=== PATIENT | female | born 1945 | race Two or more races ===

== ENCOUNTER 2020-12-14 05:32 | Inpatient (IN) | payer OTHER ==
[2020-12-14] VITALS (16 sets, daily range): BP systolic 124–186; BP diastolic 67–89
[~2020-12-14] VITALS: Ht 157.5 cm; Wt 81.6 kg
[~2020-12-14 05:32] MED LIST: B COMPLEX1 EACH ORAL; MULTIVITAMIN1 EACH PO; SYNTHROID25 MCG ORAL
[2020-12-14] MEDS ORDERED: celeBREX 200mg Cap **SURGERY PATIENTS ONLY ORAL ONE (06:00)
[2020-12-14] MEDS ORDERED: ceFAZolin 1gm IVPB IVPB ONE ×2 (06:00)
[2020-12-14] MEDS ORDERED: oxyCONTIN 10mg tab ORAL ONE (06:00)
[2020-12-14] MEDS ORDERED: PROPRANOLOL HCL40 MG ORAL (06:12)
[2020-12-14] MEDS ORDERED: Succinylcholine 20mg/ml 10ml vial ONE (06:42)
[2020-12-14] MEDS ORDERED: Rocuronium Bromide 50mg/5ml Inj IV ONE (06:42)
[2020-12-14] MEDS ORDERED: Lidocaine 1% MPF 10mg/ml 5ml ONE (06:44)
[2020-12-14] MEDS ORDERED: Ropivacaine 5mg/ml Vial 30ml INJ ONE (06:46)
[2020-12-14] MEDS ORDERED: fentaNYL 100 mcg/2 mL IV ONE (06:49)
[2020-12-14] MEDS ORDERED: Midazolam 2mg/2ml Inj ONE (06:49)
--- NOTE | 2020-12-14 07:02 | Pre-Procedure Note/Attestation ---
Pre-Procedure Note/Attestation Complete Prior to Procedure Planned Procedure: left Procedure Narrative: left total knee arthroplasty Indications for Procedure Pre-Operative Diagnosis: left knee arthritis Attestation I attest that I discussed the nature of the procedure; its benefits; risks and complications; and alternatives (and the risks and benefits of such alternatives), prior to the procedure, with the patient (or the patient's legal senior patient account representative). I attest that, if there was a reasonable possibility of needing a blood transfusion, the patient (or the patient's legal senior patient account representative) was given the [facility] Services standardized written summary, pursuant to the Dawood Jorge Blood Safety Act ([place] Health and Safety Code # 1645, as amended). I attest that I re-evaluated the patient just prior to the surgery and that there has been no change in the patient's H&P, except as documented below:NONE Og Salas MD Dec 14, 2020 07:02
[2020-12-14] MEDS ORDERED: NeoSporin Gu Irrig 1ml Amp IRRIG ONE ×2 (07:10→08:31)
[2020-12-14] MEDS ORDERED: Bacitracin 50000 Units Vial ONE ×2 (07:10→08:31)
[2020-12-14] MEDS ORDERED: TRANEXAMIC ACID IVPB ONE (07:15)
[2020-12-14] MEDS ORDERED: Sterile Water Irrig 1000ml IRRIG ONE (07:30)
[2020-12-14] MEDS ORDERED: Neostigmine 1mg/ml 10ml Inj ONE (07:30)
[2020-12-14] MEDS ORDERED: LR 1000ml ONE (07:30)
[2020-12-14] MEDS ORDERED: NS Irrig 1000ml IRRIG ONE ×3 (07:43→09:12)
[2020-12-14] MEDS ORDERED: ePHEDrine 50mg/ml Inj ONE (07:51)
[2020-12-14] MEDS ORDERED: Sodium Chloride 10ml vial INJ ONE ×2 (07:52→08:29)
[2020-12-14] MEDS ORDERED: Atropine Sulfate 0.4mg/ml inj ONE (07:53)
--- NOTE | 2020-12-14 08:24 | Anethesia Preoperative Eval ---
Anesthesia Pre-op PMH/ROS General Date of Evaluation: Dec 14, 2020 Time of Evaluation: 06:50 Anesthesiologist: Momo ASA Score: ASA 2 Mallampati Score Class I : Soft palate, uvula, fauces, pillars visible Class II: Soft palate, uvula, fauces visible Class III: Soft palate, base of uvula visible Class IV: Only hard plate visible Mallampati Classification: Class II Surgeon: Maritza Diagnosis: L knee DJD Surgical Procedure: L knee arthroplasty Anesthesia History: none Family History: no anesthesia problems Allergies: Coded Allergies: No Known Allergies (Unverified , 12/14/20) Medications: see eMAR Patient NPO?: Yes Past Medical History Cardiovascular: Reports: arrhythmia - Base lie S ish b- bliocked, no conduction abnrmalities; Denies: HTN, CAD, [place], valve dz, other Pulmonary: Denies: asthma, COPD, NAVIN, other Gastrointestinal/Genitourinary: Reports: GERD; Denies: CRI, ESRD, other Neurologic/Psychiatric: Reports: depression/anxiety; Denies: dementia, CVA, TIA, other Endocrine: Reports: hypothyroidism; Denies: DM, steroids, other HEENT: Denies: cataract (L), cataract (R), glaucoma, TANANA (L), TANANA (R), other Musculoskeletal/Integumentary: Reports: DJD Other: obesity PMH Narrative: as above PSxH Narrative: T&A, hernia repair Anesthesia Pre-op Phys. Exam Physician Exam Last Vital Signs Date Time Temp Pulse Resp B/P (MAP) Pulse Ox O2 Delivery O2 Flow Rate FiO2 12/14/20 06:02 Room Air 12/14/20 06:01 97.1 48 16 124/72 (89) 97 Constitutional: NAD Neurologic: CN 2-12 intact Cardiovascular: RRR, no M/R/G Respiratory: CTA Gastrointestinal: other - obesity Airway Exam Mallampati Score: Class II MO: limited Neck: short ROM: limited Teeth: missing Dentures: no upper, no lower Anesthesia Pre-op A/P Labs see chart Studies Pre-op Studies: EKG - Sinus Ish Risk Assessment & Plan Assessment: ASA 2 Plan: GA with ETT, L saphenous nerve block for postop pain control Pre-Antibiotics Drug: Ancef 2gr Given Within 1 Hr of Incision: Yes Time Given: 08:02 Nick Barr MD Dec 14, 2020 08:24
[2020-12-14] MEDS ORDERED: Morphine Sulfate 10mg/ml Inj ONE (08:28)
[2020-12-14] MEDS ORDERED: LR 1000ml 1,000 ML IVLG SCH (08:30)
[2020-12-14] MEDS ORDERED: Ketorolac 30mg Inj IV PRN (08:30)
[2020-12-14] MEDS ORDERED: DiphenhydrAMINE 50mg/ml Inj IVP PRN (08:30)
[2020-12-14] MEDS ORDERED: Acetaminophen (Non formulary) 100 ML IV ONE (08:30)
[2020-12-14] MEDS ORDERED: Hydromorphone 0.5mg/0.5ml inj IVP PRN (08:30)
[2020-12-14] MEDS ORDERED: Glycopyrrolate 0.2mg/ml 1ml Vial ONE (08:31)
--- NOTE | 2020-12-14 10:04 | Brief Operative Note ---
Immediate Post Operative Note Operative Note Chief Complaint: left knee pain Pre-op Diagnosis: left knee arthritis Procedure: left total knee arthroplasty Post-op Diagnosis: same as pre-op Findings: consistent w/pre-op dx studies Surgeon: md vincent Silk Weaver: doc fields Anesthesiologist: md marques Anesthesia: general Specimen: yes Complications: none Condition: stable Fluids: ns Estimated Blood Loss: minimal Drains: none Implant(s) used?: Yes - Og Lester MD Dec 14, 2020 10:04
--- NOTE | 2020-12-14 10:10 | NUR ---
CASE MANAGEMENT:REVIEW 75 YR OLD FEMALE HERE FOR ELECTIVE SURGERY SI: LEFT KNEE PAIN/ARTHRITIS 97.1 48 16 124/72 97% ON RA IS: TO SURGERY: LEFT TOTAL KNEE ARTHROPLASTY IV ANCEF X1 : CURRENTLY IN SURGERY DCP: ACUTE REHAB
--- NOTE | 2020-12-14 10:13 | NUR ---
DISCHARGE PLANNING RECEIVED CALL FROM [employer] ERIK T: [phone] F: [phone] PER ERIK PATIENT HAS BEEN APPROVED FOR 7 DAY ARU STAY POST HOSPITAL DISCHARGE
--- NOTE | 2020-12-14 10:22 | Immediate Post-Op Evaluation ---
Immediate Post-Op Evalulation Immediate Post-Op Evalulation Procedure: L total knee arthroplasty Date of Evaluation: Dec 14, 2020 Time of Evaluation: 10:21 IV Fluids: 1100 Blood Products: none Estimated Blood Loss: 100 Urinary Output: 400 Blood Pressure Systolic: 146 Blood Pressure Diastolic: 72 Pulse Rate: 48 Respiratory Rate: 18 O2 Sat by Pulse Oximetry: 99 Temperature (Fahrenheit): 97.6 Pain Score (1-10): 1 Nausea: No Vomiting: No Complications none Patient Status: reacts, patent, extubated, none Hydration Status: adequate Nick Barr MD Dec 14, 2020 10:22
--- NOTE | 2020-12-14 10:24 | NUR ---
*-*DISCHARGE PLANING*-* PATIENT HAS BEEN REFERRED TO: [facility] PH: [phone] S/W KALEE, REQUESTING THERAPY NOTES WHEN AVAILABLE.
--- NOTE | 2020-12-14 11:47 | Operative Note - Dictated ---
DATE OF OPERATION: 12/14/2020 PREOPERATIVE DIAGNOSIS: Left knee end-stage arthritis with valgus deformity. POSTOPERATIVE DIAGNOSIS: Left knee end-stage arthritis with valgus deformity. PROCEDURE: Left total knee arthroplasty using Lorna system, size 3 femur, size 3 tibia, size 31 mm all-poly patella, and size 9 mm tibial-bearing insert, all cemented. SURGEON: Og Salas MD. CASH APPLICATIONS REPRESENTATIVE: Sonam Rosales PA-C. ANESTHESIOLOGIST: Nick Barr MD. ANESTHESIA: General LMA anesthesia combined with adductor block. ESTIMATED BLOOD LOSS: Less than 100 mL. TOURNIQUET TIME: 80 minutes. COMPLICATIONS: None. BRIEF HISTORY: The patient is a pleasant 75-year-old female, who has had ongoing left knee pain. She has had decreased range of motion, stiffness, and valgus deformity. She failed nonoperative treatment. After full discussion of risks, benefits of the surgery and complications associated with it including infection, bleeding, neurovascular complication, possibility of continued pain, possibility of continued stiffness, possibility of need for further surgery, possibility of DVT, PEs, possible loss of motion, possibility of infection requiring resection arthroplasty and other complications that may arise, she opted for surgical treatment as described above. OPERATIVE PROCEDURE: The patient was brought to the operating room table and was placed supine. All pressure points well padded. General LMA anesthesia was induced and adductor block was performed. A surgical time-out was performed and preoperative antibiotics were given and tranexamic acid was given. The left knee was prepped and draped in usual sterile fashion and was exsanguinated. Tourniquet was inflated to 275 mmHg. Standard anterior approach to the knee was undertaken. The incision was taken through the subcutaneous tissue. Medial parapatellar arthrotomy was performed and medial releases of the deep fibers of the MCL was performed. The patella was then everted and was flexed. The fat pad was removed. The ACL and PCL were removed. Intramedullary access into the femur was obtained and the distal femoral cut was made in 5 degrees of valgus. Once this was completed, measurements were made and size 3 femur appeared to be the right size. The size 3 cutting block was then applied in about 3 degrees external rotation and anterior, posterior, and chamfer cuts were performed without any complications. Once this was completed, the trialing of the femur was performed and it was excellent fit. The femur was lateralized slightly and the peg holes were drilled without any complications. At this point, care was given to the tibia. The anterior crest of the tibia was palpated and marked for anatomical axis. The knee was flexed and posterior, medial, lateral retractors were placed in. The menisci were removed. The extramedullary guide was applied and anatomical axis was recreated and slope was recreated and 2 mm was taken off the most involved side, which was the lateral side. This provided excellent cut of the tibia. Once this was completed, the flexion-extension gap was checked with 9 mm gap and it appeared to be equal flexion extension with full extension of the knee. At this point, the sizing of the tibia was performed and size 3 appeared to be the right size. The tibial trial was then pinned in about 3 degrees external rotation and the central peg was drilled and it was punched. At this point, the femoral trial and tibial trial were applied and a 9 mm poly was inserted. There was full extension, full flexion and excellent stability at 0, 30 degrees, 45 degrees, and 90 degrees of flexion. At this point, care was given to the patella. The patella was everted. It measured 23 mm. Using freehand cut, a freehand cut of the patella was performed without any complication. After the cut, thickness patella was 13 mm. A size 31 mm patellar trial was applied and peg holes were drilled and the trial was applied onto the patella. At this point, range of motion and patellofemoral tracking was checked and appeared to be excellent with good patellofemoral tracking. At this point, all wounds were thoroughly irrigated. All trial components were removed. The actual components were opened and cement was mixed. After thoroughly washing the knee and drying it, the tibial component, femoral component, and patellar components were all cemented and all excess cement was removed. The cement was hardened under compression. Once this was completed, trialing with 9 mm was performed again and there was excellent range of motion and excellent stability as described previously. Patellofemoral tracking was excellent. At this point, the trial tibial insert was removed and wounds were thoroughly irrigated with Simpulse irrigation and the final 9 mm polyethylene insert was applied and locked in without any complication. The knee was placed through range of motion and varus valgus stability was checked and appeared to be excellent. The patellofemoral tracking was excellent. The wounds were thoroughly irrigated. The tourniquet was deflated and minimal bleeders were stopped. The extensor mechanism was closed using #1 Vicryl suture. Subcutaneous tissue was closed using 2-0 Vicryl suture. The skin was closed using 3-0 Monocryl suture. Dermabond was applied and sterile dressing was applied and the patient was taken to the recovery room in stable condition. All lap counts and instrument counts were correct. Og Gail Salas DR: REJI JOB#: [id number] CC:
--- NOTE | 2020-12-14 11:50 | 48 Hour Post Anesthesia Eval ---
Post Anesthesia Evaluation Procedure: L total knee arthroplasty Date of Evaluation: Dec 14, 2020 Time of Evaluation: 11:49 Blood Pressure Systolic: 175 0: 88 Pulse Rate: 49 Respiratory Rate: 19 Temperature (Fahrenheit): 97.6 O2 Sat by Pulse Oximetry: 100 Airway: patent Nausea: No Vomiting: No Pain Intensity: 3 Hydration Status: adequate Cardiopulmonary Status: Stable Mental Status/LOC: patient returned to baseline Follow-up Care/Observations: 0 Post-Anesthesia Complications: 0 Follow-up care needed: N/A Gregory Cardoso MD Dec 14, 2020 11:50
--- NOTE | 2020-12-14 12:00 | NUR ---
NURSE NOTES: Patient arrive from PACU at 1135 in no apparent distress, drowsy but arousable to voice, reporting pain that is tolerable when patient does not move. Surgical site dressing clean, dry, intact, ice pack in place, neuro assessment intact, patient denies numbness/tingling in affected extremity. IV intact, patent. Patient placed on continuous pulseox. Per Dory RN (PACU), outpatient will bring patient's belongings. Patient updated on plan of care. Side rails upx2, bed low and locked, call light within reach.
--- NOTE | 2020-12-14 12:10 | NUR ---
PT NOTE Received MD order for PT evaluation and CPM set-up. Patient drowsy, c/o L knee pain rated at 10/10. Patient unable to participate with mobility activities at this time. Patient set up on CPM 0-35 degrees per patient tolerance with good alignment. Patient instructed in use of CPM control buttons. CPM duration endorsed to Marge WOOD.
[2020-12-14] MEDS ORDERED: HYDROcodone/Acetamin 5/325 tab ORAL PRN (12:30)
[2020-12-14] MEDS: Docusate 100mg cap ORAL SCH ×2 (12:30→17:37)
[2020-12-14] MEDS ORDERED: HYDROmorphone 1mg/ml Carpuject SUBQ PRN (12:30)
[2020-12-14] MEDS ORDERED: HYDROcodone/Acetamin 7.5/325 tab ORAL PRN (12:30)
[2020-12-14] MEDS ORDERED: Milk of Magnesia 30ml Ud ORAL PRN (13:00)
[2020-12-14] MEDS: D5 1/2NS w/KCl 20mEq 1,000 ML IV SCH (13:29)
[2020-12-14] MEDS ORDERED: CEPHALEXIN500 MG ORAL (15:09)
--- NOTE | 2020-12-14 15:55 | Diagnostic Imaging Report ---
Indications: Postoperative, knee pain Technique: Two views of the left knee Comparison: None Findings: Two postoperative views of the knee demonstrate total knee arthroplasty, good anatomic alignment of the prosthesis. . Retained air from the surgical exposure seen within the soft tissues Impression: Postoperative left knee, no unusual features.
[2020-12-14] MEDS ORDERED: HydrALAZINE 25mg tab ORAL PRN (16:00)
--- NOTE | 2020-12-14 16:02 | NUR ---
NURSE NOTES: Called Dr. Jules's office for home medication orders, per office staff Dr. Victoria is currently covering for Dr. Jules. Called Dr. Victoria, reviewed home medications with MD, received orders to continue patient's home medication synthroid and hold all other home medications. MD notified and aware of patient's high blood pressure, received order for PRN Hydralazine. Orders read back and entered.
[2020-12-14] MEDS: ceFAZolin sod 1 GM in D5W 55 ML IV SCH (16:10)
--- NOTE | 2020-12-14 19:26 | NUR ---
NURSE HAND-OFF: Important Events on Shift: Post-op, pain management, CPM (removed at 1800 per PT recommendation). Patient Status: stable Diet: reg Pending Orders: n/a Pending Results/Labs: n/a Pending MD notification: n/a Latest Vital Signs: Temperature 97.6 , Pulse 52 , B/P 148 /70 , Respiratory Rate 16 , O2 SAT 99 , Nasal Cannula Vital Sign Comment: VS stable Latest Huerta Fall Score: 60 Fall Risk: High Risk Safety Measures: Call light , Bed Alarm , Side Rails Side Rails x1, Bed position . Fall Precautions: Report given to Letha WOOD.
--- NOTE | 2020-12-14 20:09 | NUR ---
NURSES NOTE: Received report from ISRAEL Bird. Rounds complete. Pt in bed, A/OX4, states pain is manageable at this time. No outward s/s of distress noted. Breathing is even and unlabored on 2 L nasal canula. Dressing Left lower leg, is in place, dry, intact. Ice applied to surgical site. IV in place, no swelling, or infiltration noted. Infusing IVF without incident. All due meds will be administered. Bed at lowest level, call light in place. Pt will continue to be monitored.
[2020-12-14] MEDS: oxyCONTIN 20mg tab ORAL SCH (20:40)
[2020-12-15] VITALS: BP 132/66
[2020-12-15] MEDS: ceFAZolin sod 1 GM in D5W 55 ML IV SCH ×2
[2020-12-15] MEDS: D5 1/2NS w/KCl 20mEq 1,000 ML IV SCH (01:33)
[2020-12-15 04:00] VITALS: BP 122/67
[2020-12-15] MEDS ORDERED: Levothyroxine 25mcg tab ORAL SCH (06:30)
[2020-12-15 07:22] LABS: BASOPHILS % (AUTO) 0.7 % (0.0-2.0); EOSINOPHILS % (AUTO) 0.8 % (0.0-3.0); HEMOGLOBIN 11.9 G/DL (12.0-16.0); LYMPHOCYTES % (AUTO) 17.8 % (20.0-45.0); MEAN CORPUSCULAR VOLUME 90 FL (80-99); MONOCYTES % (AUTO) 8.7 % (1.0-10.0); PLATELET COUNT 191 K/UL (150-450); RED BLOOD COUNT 3.98 M/UL (4.20-5.40)
--- NOTE | 2020-12-15 07:30 | NUR ---
NURSE NOTES: Pt lying in bed w/bed in lowest position and call light within reach. Pt A&Ox4, VSS, and in no apparent distress. IV site intact/asymptomatic w/IVF infusing and surgical dressing C/D/I. Pt scheduled to work w/PT this morning. Will continue to monitor.
[2020-12-15 08:00] VITALS: BP 106/60
--- NOTE | 2020-12-15 08:00 | NUR ---
NURSE HAND-OFF: Important Events on Shift:[ VS WNL however HR runs low normal. Dr doherty. Was not able to get pt out of bed pod #1 due to pain. Endorsed to AM nurse. Pain medication effective for severe pain- Dilaudid 1mg subq. [place] was not effective in handling pt pain.] Patient Status: [stable] Diet: [regular] Pending Orders: [n/a] Pending Results/Labs:[n/a] Pending MD notification:[n/a] Latest Vital Signs: Temperature 98.3 , Pulse 58 , B/P 122 /67 , Respiratory Rate 20 , O2 SAT 96 , Nasal Cannula, O2 Flow Rate 2.0 . Vital Sign Comment: WNL...HR is low normal] Latest Huerta Fall Score: 60 Fall Risk: High Risk Safety Measures: Call light Within Reach, Bed Alarm Zone 2, Side Rails Side Rails x2, Bed position Low and Locked. Fall Precautions: Yellow Socks Patient Fall Education Report given to [ISRAEL Mejía].
--- NOTE | 2020-12-15 08:02 | Orthopedic Progress Note ---
Orthopedic - Progress Note Subjective Symptoms: c/o post-op knee pain Objective Laboratory Tests Test 12/15/20 05:51 White Blood Count 8.0 K/UL (4.8-10.8) Red Blood Count 3.98 M/UL (4.20-5.40) L Hemoglobin 11.9 G/DL (12.0-16.0) L Hematocrit 36.0 % (37.0-47.0) L Mean Corpuscular Volume 90 FL (80-99) Mean Corpuscular Hemoglobin 30.0 PG (27.0-31.0) Mean Corpuscular Hemoglobin Concent 33.1 G/DL (32.0-36.0) Red Cell Distribution Width 13.0 % (11.6-14.8) Platelet Count 191 K/UL (150-450) Mean Platelet Volume 9.3 FL (6.5-10.1) Neutrophils (%) (Auto) 72.0 % (45.0-75.0) Lymphocytes (%) (Auto) 17.8 % (20.0-45.0) L Monocytes (%) (Auto) 8.7 % (1.0-10.0) Eosinophils (%) (Auto) 0.8 % (0.0-3.0) Basophils (%) (Auto) 0.7 % (0.0-2.0) Last 24 Hour Vital Signs Date Time Temp Pulse Resp B/P (MAP) Pulse Ox O2 Delivery O2 Flow Rate FiO2 12/15/20 04:00 98.3 58 20 122/67 (85) 96 12/15/20 00:00 98.8 58 20 132/66 (88) 92 12/14/20 21:00 Room Air 12/14/20 20:00 98.3 52 20 141/67 (91) 100 12/14/20 16:00 52 16 148/70 (96) 99 12/14/20 14:35 50 16 158/75 (102) 100 12/14/20 13:35 52 16 161/74 (103) 99 12/14/20 12:35 50 16 161/89 (113) 99 12/14/20 12:05 50 16 153/85 (107) 95 12/14/20 12:00 Nasal Cannula 2.0 12/14/20 11:50 49 19 100 12/14/20 11:35 97.9 52 16 156/89 (111) 96 12/14/20 11:20 97.8 46 16 169/84 100 Nasal Cannula 2 12/14/20 11:10 49 19 174/73 100 Nasal Cannula 2 12/14/20 11:00 45 15 165/86 100 Nasal Cannula 2 12/14/20 11:00 49 19 175/83 100 Simple Mask 6 12/14/20 10:50 46 17 178/79 100 Simple Mask 6 12/14/20 10:45 45 20 185/80 100 Simple Mask 6 12/14/20 10:30 49 15 169/85 100 Simple Mask 6 12/14/20 10:22 48 18 99 12/14/20 10:20 56 14 186/87 100 Simple Mask 6 12/14/20 10:11 97.4 68 16 149/74 100 Simple Mask 6 Intake and Output 12/14/20 12/15/20 19:00 07:00 Intake Total 1005 ml 240 ml Output Total 500 ml Balance 505 ml 240 ml Intake Oral 400 ml 240 ml IV Total 605 ml Output Urine Total 400 ml Estimated Blood Loss 100 ml # Voids 2 Laboratory Tests Test 12/15/20 05:51 White Blood Count 8.0 K/UL (4.8-10.8) Red Blood Count 3.98 M/UL (4.20-5.40) L Hemoglobin 11.9 G/DL (12.0-16.0) L Hematocrit 36.0 % (37.0-47.0) L Mean Corpuscular Volume 90 FL (80-99) Mean Corpuscular Hemoglobin 30.0 PG (27.0-31.0) Mean Corpuscular Hemoglobin Concent 33.1 G/DL (32.0-36.0) Red Cell Distribution Width 13.0 % (11.6-14.8) Platelet Count 191 K/UL (150-450) Mean Platelet Volume 9.3 FL (6.5-10.1) Neutrophils (%) (Auto) 72.0 % (45.0-75.0) Lymphocytes (%) (Auto) 17.8 % (20.0-45.0) L Monocytes (%) (Auto) 8.7 % (1.0-10.0) Eosinophils (%) (Auto) 0.8 % (0.0-3.0) Basophils (%) (Auto) 0.7 % (0.0-2.0) Wound: clean, dry, intact Drains: none Neuro Status: normal Vascular Status: normal Additional Comments xray reviewed Assessment Post-op Diagnosis POD 1 Procedure Performed Left TKA Plan Plan: PT, pain management, discharge plan - to rehab likely tomorrow Sonam Rosales Dec 15, 2020 08:02
--- NOTE | 2020-12-15 08:12 | NUR ---
CASE MANAGEMENT: 12/15/20 SI: POD #1...S/P LEFT TOTAL KNEE ARTHROPLASTY 98.3 58 20 122/67 96% ON RA H/H-1.9/36.0 IS: IVF@75/HR ASA PO BID CELEBREX PO QD SYNTHROID PO QAM OXYCONTIN PO Q12 IRON PO TID COLACE PO TID DILAUDID SQ Q4HRS PRN : MED/SURG STATUS DCP:REFERRED TO ACUTE REHAB ~ CRI PLAN: PHYSICAL THERAPY EVALUATION PENDING
--- NOTE | 2020-12-15 09:00 | NUR ---
PT EVALUATION NOTE Patient seen for initial evaluation and treatment initiated. Patient presents with L knee pain and impaired mobility s/p L TKA. Patient requires min assist for bed mobility and min/mod assist for transfers with FWW. Patient able to take several small side steps with min assist and FWW. Patient declined to attempt transfer to bedside commode and unable to ambulate at this time due to LLE weakness and pain. Patient will benefit from skilled inpatient PT intervention to increase LLE strength and postural stability for improved level of functional mobility and safety. Recommend discharge to acute rehab unit for continued rehab once medically cleared by MD. Addendum: 12/15/20 at 1043 by MARYLOU MITCHELL PT Amended: Links added.
[2020-12-15] MEDS: Docusate 100mg cap ORAL SCH ×3 (09:24→18:05)
[2020-12-15] MEDS: celeBREX 200mg Cap **SURGERY PATIENTS ONLY ORAL SCH (09:28)
[2020-12-15] MEDS: oxyCONTIN 20mg tab ORAL SCH ×2 (09:28→20:36)
--- NOTE | 2020-12-15 11:40 | NUR ---
[employer] E[employer]K T: [phone] F: [phone]
[2020-12-15 12:00] VITALS: BP 135/71
[2020-12-15 13:33] LABS: ANION GAP 4 mmol/L (5-15); BLOOD UREA NITROGEN 9 mg/dL (7-18); CALCIUM 7.8 MG/DL (8.5-10.1); CARBON DIOXIDE 31 MMOL/L (21-32); CHLORIDE 102 MMOL/L (98-107); CREATININE 0.7 MG/DL (0.55-1.30); POTASSIUM 4.6 MMOL/L (3.5-5.1); SODIUM 137 MMOL/L (136-145)
[2020-12-15 13:49] LABS: ALANINE AMINOTRANSFERASE 36 U/L (12-78); ALBUMIN 2.9 G/DL (3.4-5.0); ALBUMIN/GLOBULIN RATIO 1.1 (1.0-2.7); ALKALINE PHOSPHATASE 64 U/L (46-116); ASPARTATE AMINO TRANSFERASE 25 U/L (15-37); BILIRUBIN,TOTAL 0.7 MG/DL (0.2-1.0); FERRITIN 63 NG/ML (8-388); PHOSPHORUS 3.4 MG/DL (2.5-4.9)
[2020-12-15 14:15] LABS: % IRON SATURATION 24 % (15-50); IRON 66 ug/dL (50-175); TOTAL IRON BINDING CAPACITY 270 ug/dL (250-450)
--- NOTE | 2020-12-15 14:30 | NUR ---
NURSE NOTES: Pt placed on CPM machine by PT a couple of hours ago but pt states it hurts too much and requested to be removed from machine. Will continue to monitor.
--- NOTE | 2020-12-15 14:31 | History & Physical ---
History and Physical History & Physicial I am evaluating the patient at the request of Dr. Jules for post operative management. Patient underwent orthopedic surgery yesterday.Left knee end-stage arthritis with valgus deformity. She is 75 years old female Past history significant for hypothyroidism, hypertension, hernia repair May 13, 2020, tonsillectomy 40 years ago. Essential tremors. Medications propranolol 40 mg twice daily, Synthroid 25 mcg daily On examination: Patient complains of pain over the site of surgery. Afebrile, blood pressure 135/71, heart rate 58, respiratory rate 17 Head normocephalic Sclera not icteric Pupils reactive to light Neck supple no thyromegaly no bruit Lungs clear heart regular rate 58 Abdomen soft Lower extremities no edema Left knee is swollen at the site of surgery No neuro deficit Labs reviewed: Mild anemia, mild low albumin, TSH 3 Impression: Postop left knee surgery Bradycardia related to Inderal Hypothyroidism Postop pain Suggestions: Hold Inderal Stool softeners Pain management Monitor electrolytes Check urine analysis Per orders As needed blood pressure medications Discussed with Adam Wilson MD Dec 15, 2020 14:31
[2020-12-15] MEDS ORDERED: D5NS 1,000 ML IV SCH (14:45)
[2020-12-15 16:00] VITALS: BP 152/78
--- NOTE | 2020-12-15 19:30 | NUR ---
NURSE HAND-OFF: Important Events on Shift: Pt worked w/PT this morning; placed on CPM for a couple of hours but could not tolerate. Patient Status: Stable Diet: Regular Pending Orders: None Pending Results/Labs: None Pending MD notification: None Latest Vital Signs: Temperature 98.6 , Pulse 61 , B/P 152 /78 , Respiratory Rate 19 , O2 SAT 95 , Nasal Cannula, O2 Flow Rate 2.0 Vital Sign Comment: Stable Latest Huerta Fall Score: 60 Fall Risk: High Risk Safety Measures: Call light Within Reach, Bed Alarm Zone 2, Side Rails Side Rails x2, Bed position Low and Locked. Fall Precautions: Yellow Socks Patient Fall Education Report given to ISRAEL Parish.
[2020-12-15 20:00] VITALS: BP 148/76
--- NOTE | 2020-12-15 20:16 | NUR ---
NURSES NOTE: Report received from ISRAEL Mejía. Rounds completed. Pt in bed, A/OX4, denies pain currently. No outward s/s of distress noted. Breathing pattern is even and unlabored. Pt encouraged to call for assistance to use bedside commode. IV site, no s/s on infiltration. Dressing Left lower leg, clean dry intact. Will apply ice. Pt will continue to be monitored. Bed at lowest level. Call light within reach.
[2020-12-16] VITALS: BP 148/76
[2020-12-16 04:00] VITALS: BP 143/76
[2020-12-16 07:12] LABS: BASOPHILS % (AUTO) 0.7 % (0.0-2.0); EOSINOPHILS % (AUTO) 1.4 % (0.0-3.0); HEMATOCRIT 35.6 % (37.0-47.0); HEMOGLOBIN 11.9 G/DL (12.0-16.0); LYMPHOCYTES % (AUTO) 14.1 % (20.0-45.0); MEAN CORPUSCULAR VOLUME 89 FL (80-99); NEUTROPHILS % (AUTO) 74.8 % (45.0-75.0); PLATELET COUNT 171 K/UL (150-450); RED CELL DISTRIBUTION WIDTH 12.7 % (11.6-14.8); WHITE BLOOD COUNT 6.6 K/UL (4.8-10.8)
--- NOTE | 2020-12-16 07:23 | Orthopedic Progress Note ---
Orthopedic - Progress Note Subjective Symptoms: c/o post-op knee pain Additional Comments slow with PT, but got up to go to the commode today Objective Last 24 Hour Vital Signs Date Time Temp Pulse Resp B/P (MAP) Pulse Ox O2 Delivery O2 Flow Rate FiO2 12/16/20 04:00 98.8 80 20 143/76 (98) 93 12/16/20 00:00 97.9 80 20 148/76 (100) 91 12/15/20 21:00 Room Air 12/15/20 20:00 98.2 76 20 148/76 (100) 94 12/15/20 16:00 98.6 61 19 152/78 (102) 95 12/15/20 12:00 98.3 56 19 135/71 (92) 95 12/15/20 09:00 Room Air 12/15/20 08:00 97.6 58 17 106/60 (75) 91 Intake and Output 12/15/20 12/16/20 19:00 07:00 Intake Total 240 ml Output Total 350 ml Balance -350 ml 240 ml Intake Oral 240 ml Output Urine Total 350 ml # Voids 3 Laboratory Tests Test 12/16/20 05:50 White Blood Count 6.6 K/UL (4.8-10.8) Red Blood Count 4.00 M/UL (4.20-5.40) L Hemoglobin 11.9 G/DL (12.0-16.0) L Hematocrit 35.6 % (37.0-47.0) L Mean Corpuscular Volume 89 FL (80-99) Mean Corpuscular Hemoglobin 29.7 PG (27.0-31.0) Mean Corpuscular Hemoglobin Concent 33.4 G/DL (32.0-36.0) Red Cell Distribution Width 12.7 % (11.6-14.8) Platelet Count 171 K/UL (150-450) Mean Platelet Volume 9.8 FL (6.5-10.1) Neutrophils (%) (Auto) 74.8 % (45.0-75.0) Lymphocytes (%) (Auto) 14.1 % (20.0-45.0) L Monocytes (%) (Auto) 9.0 % (1.0-10.0) Eosinophils (%) (Auto) 1.4 % (0.0-3.0) Basophils (%) (Auto) 0.7 % (0.0-2.0) Wound: clean, dry, intact Drains: none Neuro Status: normal Vascular Status: normal Assessment Procedure Performed left total knee arthroplasty Plan Plan: PT, pain management Additional Comments Discharge to rehab Dressing changes D/C IV abx Og Salas MD Dec 16, 2020 07:23
--- NOTE | 2020-12-16 07:45 | NUR ---
NURSE NOTES: Pt lying in bed w/bed in lowest position and call light within reach. Pt A&Ox4, VSS, and has no c/o pain at this time. IV site intact/asymptomatic & H/L'd and surgical dressing C/D/I. Pt scheduled to be D/C'd to [facility] this AM. Will continue to monitor.
[2020-12-16 08:00] VITALS: BP 150/76
--- NOTE | 2020-12-16 08:15 | NUR ---
NURSE HAND-OFF: Important Events on Shift:[Pt used bed side commode 3 times. Also set up in chair x30min. Pt much more encouraged to ambulate this NOC shift.] Patient Status: [stable] Diet: [regular] Pending Orders: [discharge] Pending Results/Labs:[Am labs still pending at time of hand off] Pending MD notification:[RN spoke to Dr. Maldonado at the doctor's rounds and updated pt status for NOC shift. AM RN also spoke to surgeon for preparation for discharge 12/16] Latest Vital Signs: Temperature 98.8 , Pulse 80 , B/P 143 /76 , Respiratory Rate 20 , O2 SAT 93 , Nasal Cannula, O2 Flow Rate 2.0 . Vital Sign Comment: [wnl] Latest Huerta Fall Score: 60 Fall Risk: High Risk Safety Measures: Call light Within Reach, Bed Alarm Zone 2, Side Rails Side Rails x2, Bed position Low and Locked. Fall Precautions: Yellow Socks Patient Fall Education Report given to [ISRAEL Mejía].
--- NOTE | 2020-12-16 08:26 | NUR ---
*-*DISCHARGE PLANING*-* [facility] PH: [phone] S/W KALEE, AVELINA SHE IS HAVING HER TEAM CHECK THE INSURANCE AND WILL START SEEKING BED AVAILABILITY.
[2020-12-16] MEDS: oxyCONTIN 20mg tab ORAL SCH ×2 (09:24→21:23)
[2020-12-16] MEDS: Lisinopril 2.5mg tab ORAL SCH (09:24)
[2020-12-16] MEDS: celeBREX 200mg Cap **SURGERY PATIENTS ONLY ORAL SCH (09:24)
[2020-12-16] MEDS: Docusate 100mg cap ORAL SCH ×3 (09:24→17:46)
--- NOTE | 2020-12-16 09:45 | NUR ---
NURSE NOTES: Changed surgical dressing w/4x4 and tegaderm; pt tolerated well. Will continue to monitor.
--- NOTE | 2020-12-16 10:13 | General Progress Note ---
Subjective Date patient seen: Dec 16, 2020 ROS Limited/Unobtainable: No Constitutional: Reports: malaise Allergies: Coded Allergies: No Known Allergies (Unverified , 12/14/20) Objective Last 24 Hour Vital Signs Date Time Temp Pulse Resp B/P (MAP) Pulse Ox O2 Delivery O2 Flow Rate FiO2 12/16/20 09:24 150/76 12/16/20 08:00 98.3 78 19 150/76 (100) 95 12/16/20 04:00 98.8 80 20 143/76 (98) 93 12/16/20 00:00 97.9 80 20 148/76 (100) 91 12/15/20 21:00 Room Air 12/15/20 20:00 98.2 76 20 148/76 (100) 94 12/15/20 16:00 98.6 61 19 152/78 (102) 95 12/15/20 12:00 98.3 56 19 135/71 (92) 95 Intake and Output 12/15/20 12/16/20 19:00 07:00 Intake Total 240 ml Output Total 350 ml Balance -350 ml 240 ml Intake Oral 240 ml Output Urine Total 350 ml # Voids 3 Current Medications Medications (Trade) Dose Ordered Sig/Bam Route PRN Reason Start Time Stop Time Status Last Admin Dose Admin Acetaminophen (Tylenol) 650 mg Q4H PRN ORAL temp>100.2 12/14/20 12:30 01/13/21 12:29 Acetaminophen/ Hydrocodone Bitart ([place] 5/325) 2 tab Q4H PRN ORAL Moderate Pain (Pain Scale 4-6) 12/14/20 12:30 12/21/20 12:29 12/14/20 22:23 Acetaminophen/ Hydrocodone Bitart ([place] 7.5/325) 1 tab Q4H PRN ORAL Mild Pain (Pain Scale 1-3) 12/14/20 12:30 12/21/20 12:29 Aspirin (ASA) 325 mg DAILY ORAL 12/16/20 09:00 01/29/21 08:59 12/16/20 09:23 Celecoxib (CeleBREX) 200 mg DAILY ORAL 12/15/20 09:00 03/15/21 08:59 12/16/20 09:24 Docusate Sodium (Colace) 100 mg THREE TIMES A DAY ORAL 12/14/20 13:00 01/13/21 12:59 12/16/20 09:24 Hydralazine HCl (Apresoline) 25 mg Q4H PRN ORAL SBP> 160 OR 12/14/20 16:00 03/14/21 15:59 Hydromorphone HCl (Dilaudid) 1 mg Q4H PRN SUBQ Severe Pain (Pain Scale 7-10) 12/14/20 12:30 12/21/20 12:29 12/15/20 05:44 Levothyroxine Sodium (Synthroid) 50 mcg ACBREAKFAST ORAL 12/16/20 06:30 01/14/21 06:29 12/16/20 06:58 Lisinopril (ZestriL) 2.5 mg DAILY ORAL 12/16/20 09:00 01/15/21 08:59 12/16/20 09:24 Magnesium Hydroxide (Mom) 30 ml DAILYPRN PRN ORAL Constipation 12/14/20 13:00 01/13/21 12:59 Ondansetron HCl (Zofran) 4 mg Q6H PRN IVP Nausea & Vomiting 12/14/20 12:30 01/13/21 12:29 Oxycodone HCl (OxyCONTIN) 10 mg EVERY 12 HOURS ORAL 12/14/20 21:00 12/21/20 20:59 12/16/20 09:24 Pantoprazole (Protonix) 40 mg BID ORAL 12/15/20 18:00 01/13/21 08:59 12/16/20 09:24 Propranolol HCl (Inderal) 10 mg Q8HR ORAL 12/16/20 14:00 01/15/21 13:59 Laboratory Tests 12/16/20 05:50: White Blood Count 6.6, Red Blood Count 4.00L, Hemoglobin 11.9L, Hematocrit 35.6L , Mean Corpuscular Volume 89, Mean Corpuscular Hemoglobin 29.7, Mean Corpuscular Hemoglobin Concent 33.4, Red Cell Distribution Width 12.7, Platelet Count 171, Mean Platelet Volume 9.8, Neutrophils (%) (Auto) 74.8, Lymphocytes (%) (Auto) 14.1L, Monocytes (%) (Auto) 9.0, Eosinophils (%) (Auto) 1.4, Basophils (%) (Auto) 0.7 Height (Feet): 5 Height (Inches): 2.00 Weight (Pounds): 180 General Appearance: no apparent distress Cardiovascular: normal rate Respiratory/Chest: decreased breath sounds Abdomen: soft Assessment/Plan Problem List: (1) Hypothyroidism ICD Codes: E03.9 - Hypothyroidism, unspecified SNOMED: 93617654 (2) Bradycardia ICD Codes: R00.1 - Bradycardia, unspecified SNOMED: 33999562 (3) HTN (hypertension) ICD Codes: I10 - Essential (primary) hypertension SNOMED: 03031856 (4) Arthritis of left knee ICD Codes: M17.12 - Unilateral primary osteoarthritis, left knee SNOMED: 111025071 Status Narrative Postop left knee surgery Bradycardia related to Inderal Hypothyroidism Postop pain Assessment/Plan: December 16: Day 2 post left knee surgery. Patient feels better. Labs reviewed. Blood pressure slightly elevated. Lisinopril added. Continue per Ortho. Low- dose Inderal for tremors resumed. Suggestions: Hold Inderal Stool softeners Pain management Monitor electrolytes Check urine analysis Per orders As needed blood pressure medications Discussed with Adam Wilson MD Dec 16, 2020 10:13
--- NOTE | 2020-12-16 11:33 | NUR ---
CASE MANAGEMENT: 12/16/20 SI: POD #1...S/P LEFT TOTAL KNEE ARTHROPLASTY 98.3 78 19 150/76 95% ON RA H/H-11.9/35.6 IS: INDERAL PO Q8HR LISINOPRIL PO QD ASA PO BID CELEBREX PO QD SYNTHROID PO QAM OXYCONTIN PO Q12 IRON PO TID COLACE PO TID DILAUDID SQ Q4HRS PRN : MED/SURG STATUS DCP:REFERRED TO ACUTE REHAB ~ [facility] PLAN: DISCHARGE TO [facility] TODAY ~ WAITING FOR BED ASSIGNMENT
[2020-12-16] MEDS ORDERED: HYDROCODON-ACE1 EA15 ORAL (11:52)
[2020-12-16] MEDS ORDERED: COLACE100 MG ORAL (11:52)
[2020-12-16] MEDS ORDERED: ZESTRIL2.5 MG ORAL (11:52)
[2020-12-16] MEDS ORDERED: ASPIRIN325 MG ORAL (11:52)
[2020-12-16] MEDS ORDERED: MOM30 ML ORAL (11:52)
[2020-12-16] MEDS ORDERED: PROPRANOLOL HCL10 MG ORAL (11:52)
[2020-12-16] MEDS ORDERED: SYNTHROID50 MCG ORAL (11:52)
[2020-12-16] MEDS ORDERED: HYDROcodone/Acetamin 7.5/325 ORAL (11:52)
[2020-12-16] MEDS ORDERED: ACETAMINOPHEN325 M1 ORAL (11:52)
[2020-12-16] MEDS ORDERED: PANTOPRAZOLE SO40 MG ORAL (11:52)
[2020-12-16 12:00] VITALS: BP 128/60
[2020-12-16] MEDS: Propranolol 10mg tab ORAL SCH ×2 (13:47→21:23)
[2020-12-16] MEDS ORDERED: D5NS 1000ml IV ONE (13:50)
--- NOTE | 2020-12-16 13:57 | NUR ---
*-*DISCHARGE PLANING*-* [facility] PH: [phone] S/W RAJESH GRANDA FOR AUTHORIZATION TO BE APPROVED WITH INSURANCE, ALSO PENDING BED AVAILABILITY.
[2020-12-16 16:00] VITALS: BP 131/67
--- NOTE | 2020-12-16 17:52 | NUR ---
[employer]AGE [employer]SEMBLER [employer]RIK T: [phone] F: [phone]
--- NOTE | 2020-12-16 19:22 | NUR ---
NURSE HAND-OFF: Important Events on Shift: Pt ambulating a lot better today; placed on CPM for a couple of hours; D/C to [facility] pending bed availability. Patient Status: Stable Diet: Regular Pending Orders: None Pending Results/Labs: None Pending MD notification: None Latest Vital Signs: Temperature 96.9 , Pulse 79 , B/P 131 /67 , Respiratory Rate 18 , O2 SAT 98 , Nasal Cannula, O2 Flow Rate 2.0 . Vital Sign Comment: Stable Latest Huerta Fall Score: 60 Fall Risk: High Risk Safety Measures: Call light Within Reach, Bed Alarm Zone 2, Side Rails Side Rails x2, Bed position Low and Locked. Fall Precautions: Yellow Socks Patient Fall Education Report given to ISRAEL Brock.
--- NOTE | 2020-12-16 19:36 | NUR ---
NURSE NOTES: received report from sophia garza. patient on bed, awake and verbally responsive. stateless speaking speaks simple luxembourgish. denies any pain or discomfort. on room air, no sob. iv access on the right hand,saline lock. per greg" has an order for d/c to [facility], pending for bed availability". reiterated to call and ask for assistance. call light and light button within easy reach. will continue plan of care.
[2020-12-16 20:00] VITALS: BP 129/62
[2020-12-17] VITALS (7 sets, daily range): BP systolic 102–150; BP diastolic 55–71
--- NOTE | 2020-12-17 05:00 | NUR ---
NURSE NOTES: noted with blood tinge on the surgical dressing over the left knee.offered to change the dressing. patient refused and would like to have it later today.
[2020-12-17] MEDS: Propranolol 10mg tab ORAL SCH ×2 (05:34→13:02)
--- NOTE | 2020-12-17 06:36 | NUR ---
NURSE HAND-OFF: Important Events on Shift: refused to get surgical dressing change tonight; prefers to change it later today. last dressing changed was yesterday(am shift) Patient Status: stable Diet: regular Pending Orders: pending discharge to [facility]; pending bed availability Pending Results/Labs: Pending MD notification: Latest Vital Signs: Temperature 98.2 , Pulse 64 , B/P 120 /71 , Respiratory Rate 18 , O2 SAT 98 , Nasal Cannula, O2 Flow Rate 2.0 . Vital Sign Comment: Latest Huerta Fall Score: 60 Fall Risk: High Risk Safety Measures: Call light Within Reach, Bed Alarm Zone 2, Side Rails Side Rails x2, Bed position Low and Locked. Fall Precautions: Yellow Socks Patient Fall Education Addendum: 12/17/20 at 0727 by Jade Rosario RN report given to sophia connolly
[2020-12-17 06:39] LABS: BASOPHILS % (AUTO) 1.3 % (0.0-2.0); EOSINOPHILS % (AUTO) 2.6 % (0.0-3.0); HEMOGLOBIN 11.6 G/DL (12.0-16.0); LYMPHOCYTES % (AUTO) 19.2 % (20.0-45.0); MEAN CORPUSCULAR VOLUME 90 FL (80-99); MONOCYTES % (AUTO) 8.6 % (1.0-10.0); NEUTROPHILS % (AUTO) 68.4 % (45.0-75.0); PLATELET COUNT 201 K/UL (150-450); RED BLOOD COUNT 3.87 M/UL (4.20-5.40); WHITE BLOOD COUNT 7.9 K/UL (4.8-10.8)
--- NOTE | 2020-12-17 07:10 | NUR ---
NURSE NOTES: Report received from Delmy WOOD, rounds made. Patient resting in semi-fowlers position in bed. AOx4, calm. Respirations even/unlabored on RA. IS at bedside, reinforced use. RH saline lock intact. Denies SOB, pain, NV. Left knee dressing with stained bloody drainage, will change, RICHARD hose in place. Neuros intact, skin warm, wiggles, able to move LLE, non-pitting edema to left pedal, rolled towel beneath left ankle. Right SCD on. Assisted patient to bathroom with FWW, BSC over toilet, gait slow/steady. Call light in reach, bed in lowest position. Will continue to monitor.
[2020-12-17] MEDS: celeBREX 200mg Cap **SURGERY PATIENTS ONLY ORAL SCH (08:57)
[2020-12-17] MEDS: Docusate 100mg cap ORAL SCH ×3 (08:57→17:23)
[2020-12-17] MEDS: oxyCONTIN 10mg tab ORAL SCH ×2 (08:58→20:44)
[2020-12-17] MEDS: Lisinopril 2.5mg tab ORAL SCH (08:58)
--- NOTE | 2020-12-17 09:01 | NUR ---
CASE MANAGEMENT: 12/17/20 SI: POD #3...S/P LEFT TOTAL KNEE ARTHROPLASTY 97.4 58 18 150/64 94% ON RA H/H-11.6/35.0 CA-7.8 IS: INDERAL PO Q8HR LISINOPRIL PO QD ASA PO BID CELEBREX PO QD SYNTHROID PO QAM OXYCONTIN PO Q12 IRON PO TID COLACE PO TID DILAUDID SQ Q4HRS PRN : MED/SURG STATUS DCP:REFERRED TO ACUTE REHAB ~ [facility] PLAN: DISCHARGE TO [facility] TODAY ~STILL WAITING FOR BED ASSIGNMENT FORENSIC MATERIALS ENGINEERMARIA DEL CARMEN, HAS BEEN WORKING ON BED SINCE YESTERDAY
--- NOTE | 2020-12-17 09:39 | General Progress Note ---
Subjective Date patient seen: Dec 17, 2020 ROS Limited/Unobtainable: No Constitutional: Reports: weakness Allergies: Coded Allergies: No Known Allergies (Unverified , 12/14/20) Objective Last 24 Hour Vital Signs Date Time Temp Pulse Resp B/P (MAP) Pulse Ox O2 Delivery O2 Flow Rate FiO2 12/17/20 08:58 150/64 12/17/20 08:00 97.4 58 18 150/64 (92) 94 12/17/20 05:34 64 120/71 12/17/20 04:00 98.2 64 18 120/71 (87) 98 12/17/20 00:00 97.6 62 19 120/70 (87) 98 12/16/20 21:53 96.9 12/16/20 21:23 65 129/62 12/16/20 21:00 Room Air 12/16/20 20:00 97.6 60 19 129/62 (84) 99 12/16/20 16:00 96.9 79 18 131/67 (88) 98 12/16/20 13:47 69 123/69 12/16/20 12:00 98.0 73 18 128/60 (82) 96 Intake and Output 12/16/20 12/17/20 19:00 07:00 Intake Total 500 ml 250 ml Balance 500 ml 250 ml Intake Oral 250 ml Other 500 ml # Voids 2 Current Medications Medications (Trade) Dose Ordered Sig/Bam Route PRN Reason Start Time Stop Time Status Last Admin Dose Admin Acetaminophen (Tylenol) 650 mg Q4H PRN ORAL temp>100.2 12/14/20 12:30 01/13/21 12:29 Acetaminophen/ Hydrocodone Bitart ([place] 5/325) 2 tab Q4H PRN ORAL Moderate Pain (Pain Scale 4-6) 12/14/20 12:30 12/21/20 12:29 12/14/20 22:23 Acetaminophen/ Hydrocodone Bitart ([place] 7.5/325) 1 tab Q4H PRN ORAL Mild Pain (Pain Scale 1-3) 12/14/20 12:30 12/21/20 12:29 Aspirin (ASA) 325 mg DAILY ORAL 12/16/20 09:00 01/29/21 08:59 12/17/20 08:57 Celecoxib (CeleBREX) 200 mg DAILY ORAL 12/15/20 09:00 03/15/21 08:59 12/17/20 08:57 Docusate Sodium (Colace) 100 mg THREE TIMES A DAY ORAL 12/14/20 13:00 01/13/21 12:59 12/17/20 08:57 Hydralazine HCl (Apresoline) 25 mg Q4H PRN ORAL SBP> 160 OR 12/14/20 16:00 03/14/21 15:59 Hydromorphone HCl (Dilaudid) 1 mg Q4H PRN SUBQ Severe Pain (Pain Scale 7-10) 12/14/20 12:30 12/21/20 12:29 12/15/20 05:44 Levothyroxine Sodium (Synthroid) 50 mcg ACBREAKFAST ORAL 12/16/20 06:30 01/14/21 06:29 12/17/20 05:34 Lisinopril (ZestriL) 2.5 mg DAILY ORAL 12/16/20 09:00 01/15/21 08:59 12/17/20 08:58 Magnesium Hydroxide (Mom) 30 ml DAILYPRN PRN ORAL Constipation 12/14/20 13:00 01/13/21 12:59 Ondansetron HCl (Zofran) 4 mg Q6H PRN IVP Nausea & Vomiting 12/14/20 12:30 01/13/21 12:29 Oxycodone HCl (OxyCONTIN) 10 mg EVERY 12 HOURS ORAL 12/17/20 09:00 12/21/20 20:59 12/17/20 08:58 Pantoprazole (Protonix) 40 mg BID ORAL 12/15/20 18:00 01/13/21 08:59 12/17/20 08:58 Propranolol HCl (Inderal) 10 mg Q8HR ORAL 12/16/20 14:00 01/15/21 13:59 12/17/20 05:34 Laboratory Tests 12/17/20 05:50: White Blood Count 7.9, Red Blood Count 3.87L, Hemoglobin 11.6L, Hematocrit 35.0L , Mean Corpuscular Volume 90, Mean Corpuscular Hemoglobin 29.9, Mean Corpuscular Hemoglobin Concent 33.1, Red Cell Distribution Width 13.0, Platelet Count 201, Mean Platelet Volume 9.1, Neutrophils (%) (Auto) 68.4, Lymphocytes (%) (Auto) 19.2L, Monocytes (%) (Auto) 8.6, Eosinophils (%) (Auto) 2.6, Basophils (%) (Auto) 1.3 Height (Feet): 5 Height (Inches): 2.00 Weight (Pounds): 180 General Appearance: no apparent distress Cardiovascular: normal rate Respiratory/Chest: lungs clear Abdomen: soft Assessment/Plan Problem List: (1) Hypothyroidism ICD Codes: E03.9 - Hypothyroidism, unspecified SNOMED: 43853297 (2) Bradycardia ICD Codes: R00.1 - Bradycardia, unspecified SNOMED: 50551750 (3) HTN (hypertension) ICD Codes: I10 - Essential (primary) hypertension SNOMED: 64481475 (4) Arthritis of left knee ICD Codes: M17.12 - Unilateral primary osteoarthritis, left knee SNOMED: 853904912 Assessment/Plan: December 17: Patient due for discharge to [place] [facility] when bed available. Blood pressure better improved. Will increase Zestril to twice daily dose of 2.5 mg. December 16: Day 2 post left knee surgery. Patient feels better. Labs reviewed. Blood pressure slightly elevated. Lisinopril added. Continue per Ortho. Low- dose Inderal for tremors resumed. Suggestions: Hold Inderal Stool softeners Pain management Monitor electrolytes Check urine analysis Per orders As needed blood pressure medications Discussed with Adam Wilson MD Dec 17, 2020 09:39
--- NOTE | 2020-12-17 13:00 | NUR ---
NURSE NOTES: Patient started on CPM 0-50 with PT at 1145 am, tolerating well, plans to remove at 1745. Will continue to monitor.
--- NOTE | 2020-12-17 13:34 | NUR ---
[employer] COMP INVENTORY WORKER ERIK T: [phone] F: [phone]
--- NOTE | 2020-12-17 13:45 | NUR ---
NURSE NOTES: CPM removed at this time, per patient request, up to bathroom with FWW and RN. No BM yet. Medicated with MOM. Left knee surgical dressing changed, dermabond noted, 4x4, tegederm, with RICHARD keane. Patient assisted to chair. Will try CPM again in one hour per patient.
--- NOTE | 2020-12-17 14:00 | NUR ---
DISCHARGE PLANNING SPOKE WITH KALEE AT [facility] KALEE HAS RECEIVED AUTHORIZATION FROM [facility] TO ACCEPT THIS PATIENT. UNFORTUNATELY, NO BEDS ARE AVAILABLE AT THIS TIME. KALEE WILL CONTACT THIS [employer] IF ANYTHING CHANGES THE DAY PROGRESSES ON. DRAFTER TOOL DESIGN CAN F/U WITH [facility] TOMORROW REGARDING BED AVAILABILITY KALEE T: [phone] (ONLY AVAILABLE ) [facility] T: [phone] (ONLY AVAILABLE ON SUNDAY)
--- NOTE | 2020-12-17 16:37 | NUR ---
*-*DISCHARGE PLANNED*-* PATIENT HAS BEEN ACCEPTED AND WILL BE DISCHARGE TO: [facility] P: [phone] FOR NURSE TO NURSE REPORT ROOM# 201 [facility] TRANSPORTATION SET FOR 6PM [id number]. S/W PATIENTS FAMILY, JUVENAL, WHO IS IN AGREEMENT WITH DISCHARGE PLAN.
--- NOTE | 2020-12-17 17:30 | NUR ---
NURSE NOTES: Report called to Faustina WOOD at [facility], plans to transfer patient at 1800 via [facility] .
--- NOTE | 2020-12-17 18:15 | NUR ---
NURSE NOTES: Home medications picked up from pharmacy, given to patient. RH IV saline lock, discontinued, no active bleeding. No bm yet. Patient sitting up in chair at this time, in stable condition. Notified that [facility] will leaf size picker at 1930, patient aware.
--- NOTE | 2020-12-17 19:12 | NUR ---
NURSE HAND-OFF: Important Events on Shift:Transfer to [facility] at 1930, needs ID bracelet removed, IV saline lock discontinued Patient Status: stable Diet: regular Pending Orders: discharge Pending Results/Labs:none Pending MD notification:none Latest Vital Signs: Temperature 97.9 , Pulse 55 , B/P 126 /60 , Respiratory Rate 18 , O2 SAT 97 , Nasal Cannula, O2 Flow Rate 2.0 . Vital Sign Comment: none Latest Huerta Fall Score: 60 Fall Risk: High Risk Safety Measures: Call light Within Reach, Bed Alarm Zone 2, Side Rails Side Rails x2, Bed position Low and Locked. Fall Precautions: Yellow Socks Door Sign Patient Fall Education Report given to Anne WOOD.
--- NOTE | 2020-12-17 19:20 | NUR ---
NURSE NOTES: Spoke to patient's son, updated him on transfer time (delayed to 1930, was suppose to be 1800) and location ([facility]).
--- NOTE | 2020-12-17 20:12 | NUR ---
nurse's notes: received patient sitting on a chair but is tired; assisted back to bed; applied knee immobilizer; for discharge tonight to [facility] via [facility]; pick-up delayed for another 45 minutes; new ETA 2044; informed patient; admits to 7/10 pain but refused offer of pain medication; will continue to monitor until time of discharge.
[2020-12-17] MEDS ORDERED: Lisinopril 2.5mg tab ORAL SCH (21:00)
--- NOTE | 2020-12-17 23:22 | NUR ---
nurse's notes: [facility]; awake, alert and oriented; in no apparent distress.
--- NOTE | 2020-12-20 15:06 | Discharge Summary ---
Discharge Summary Discharge Summary _ Date of admission: 12/14/2020 Date of discharge: 12/17/[address] Salas History of Present Illness and Brief Hospital Course Ms. Pickering is a 75-year-old female with past medical history of left knee end- stage arthritis with valgus deformity who presented to [facility] for a scheduled left total knee arthroplasty. Patient had an ongoing left knee pain from arthritis with decreased range of motion, stiffness, and valgus deformity. She failed nonoperative treatment. After full discussion of risks, benefits of the surgery and complications associated with that, she opted for surgical treatment. She tolerated the procedure well and was taken to recovery room in stable condition. The details of the operation are described in operative notes by Dr. Salas. Patient was closely monitored after surgery. Patient was found to be medically stable and was discharged to [facility]. Consultants: Nephrology Dr. Hernandez Discharge Condition Improved and stable Discharge Activity Advance as tolerated Final diagnoses Bradycardia, likely medication induced Hypothyroidism Postop pain Hypertension Arthritis of left knee s/p left total knee arthroplasty I have been assigned to dictate discharge summary for this account. I was not involved in the patient's management Aidan Ricci Dec 20, 2020 15:06
== END 2020-12-17 23:28 | DRG 470 ==
LOC: SDSOVERFLO 05:32 → 4E 11:55
PROC: 0SRD069 Replacement of Left Knee Joint with Oxidized Zirconium on Polyethylene Synthetic Substitute, Cemented, Open Approach (ICD-10-PCS; principal; 2020-12-14 07:30)
DX: M17.12 Unilateral primary osteoarthritis, left knee (principal); M21.062 Valgus deformity, not elsewhere classified, left knee; E03.9 Hypothyroidism, unspecified; R25.1 Tremor, unspecified; R00.1 Bradycardia, unspecified; T44.7X5A Adverse effect of beta-adrenoreceptor antagonists, initial encounter; I10 Essential (primary) hypertension; G89.18 Other acute postprocedural pain
CPT/HCPCS: 36415; 80053; 82607; 82728; 82746; 83540; 83550; 83735; 84100; 84443; 84550; 85025; 86850; 86900; 86901; 87081; 94003; 94150; J2250; J2405; J2710